=== PATIENT | female | born 1995 | race Caucasian/White ===

== ENCOUNTER 2021-01-27 11:13 | Outpatient (CLI) | payer SELFPAY ==
[~2021-01-27] VITALS: Ht 162.6 cm; Wt 99.3 kg
[2021-01-27 12:10] LABS: APPEARANCE, URINE CLOUDY (CLEAR); BACTERIA, URINE AUTO 1+ (NEGATIVE); BILIRUBIN, URINE AUTO NEGATIVE (NEGATIVE); BLOOD, URINE BLOOD 2+ (NEGATIVE); COLOR, URINE YELLOW (YELLOW); GLUCOSE, URINE (UA) AUTO NEGATIVE (NEGATIVE); KETONE, URINE AUTO NEGATIVE (NEGATIVE); LEUKOCYTE ESTERASE, URINE AUTO 3+ (NEGATIVE); MUCUS, URINE SMALL (NEGATIVE); NITRITE, URINE AUTO NEGATIVE (NEGATIVE); PROTEIN, URINE AUTO 1+ mg/dL (NEGATIVE); RBC, URINE AUTO 102 /HPF (0-3); SPECIFIC GRAVITY URINE AUTO 1.028 (1.002-1.035); SQUAMOUS EPITHELIAL CELL UR AU 8 /HPF (0-6); WBC, URINE AUTO TNTC /HPF (0-3)
--- NOTE | 2021-01-27 12:11 | IPNPDOC ---
Obstetrical Progress Note Date of Service Jan 27, 2021 Subjective Ms. Betancourt is a 25yo at 23+4 presenting for urinary frequency of small void urine, suprapubic discomfort, and abdominal cramps. She denied vb, lof, decreased fm, regular painful contractions. she denied n/v/d, cp, sob, reyes, visual changes, f/c, discharge. Tocometer Contractions: No Sterile Vaginal Examination Dilation: None Station: -3 Cervical Consistency: Firm Cervical Position: Posterior Postion/Presentation: Cephalic presentation (by US) Assessment and Plan Status: Reassuring Additional Comments Ms. Betancourt is a 25yo at 23+4 presenting for urinary frequency of small void urine, suprapubic discomfort, and abdominal cramps. VS normal. Doptones present. No contractions on toco. Cervix C/T/H. CL 4cm. +FM cephalic. Visually appropriate fluid. - Macrobid given for UTI - UA/UCx sent, will call if not susceptible - routine OB return precautions given - patient to follow up at next [facility] and get repeat UCx in 2wk MARYANN BONNER DO Jan 27, 2021 12:11
[2021-01-27] MEDS ORDERED: CITA10TA5 PO (12:14)
[2021-01-27] MEDS ORDERED: PRENTAB9 PO (12:14)
[2021-01-27] MEDS ORDERED: ASPI81CH33 PO (12:14)
== END 2021-01-27 12:09 | disposition home or self-care (01) ==
LOC: M LDO 11:13
PROVIDERS: ATTEND Obstetrics & Gynecology
DX: O23.42 Unspecified infection of urinary tract in pregnancy, second trimester (principal); Z3A.23 23 weeks gestation of pregnancy
CPT/HCPCS: 76815; 81001; 87088; 87186; G0378; G0463

== ENCOUNTER 2021-04-18 04:23 | Outpatient (CLI) | payer OTHER ==
[~2021-04-18] VITALS: Ht 162.6 cm; Wt 101.9 kg
[~2021-04-18 04:23] MED LIST: ASPI81CH33 PO; CITA10TA5 PO; PRENTAB9 PO
[2021-04-18 04:47] VITALS: BP 133/74
--- NOTE | 2021-04-18 06:50 | IPNPDOC ---
Text Note Date of Service The patient was seen on 04/18/21. NOTE 25 yo at 35+1 weeks gestation presented with chest pressure and low back discomfort. Chest discomfort resolved after her presentation to L&D. Denies vaginal bleeding or leakage of fluid. Report regular movement. Vitals - VSS, afebrile, normotensive, non tachycardic General - Sitting up in bed, AAOX3, pleasant and conversant, NAD Lungs - CTAB bilaterally Low back - Mild tenderness to palpation at lumbosacral junction. Cervix - Cl/thick/high per RN exam FHR tracing - Cat I wit moderate variability, +accels, no decels. Rare ctx on toco. UA - Pending Chest discomfort resolved upon presentation to L&D. Lungs clear. Vitals normal. Reassuring status. Scripts written for Flexeril and Pepcid at [facility]. patient discharged with return precautions. All questions answered. 30 minutes Mansoor VS,Junior, I+O VS, Junior, I+O Vital Signs Date Time Temp Pulse Resp B/P (MAP) Pulse Ox O2 Delivery O2 Flow Rate FiO2 04/18/21 04:47 97.6 90 18 133/74 (93) JAVIER BRICE DO Apr 18, 2021 06:50
[2021-04-18 06:57] LABS: APPEARANCE, URINE CLOUDY (CLEAR); BACTERIA, URINE AUTO NEGATIVE (NEGATIVE); BILIRUBIN, URINE AUTO NEGATIVE (NEGATIVE); BLOOD, URINE BLOOD NEGATIVE (NEGATIVE); CALCIUM OXALATE CRYSTALS SMALL; COLOR, URINE AMBER (YELLOW); GLUCOSE, URINE (UA) AUTO NEGATIVE (NEGATIVE); KETONE, URINE AUTO NEGATIVE (NEGATIVE); LEUKOCYTE ESTERASE, URINE AUTO 3+ (NEGATIVE); MUCUS, URINE SMALL (NEGATIVE); NITRITE, URINE AUTO NEGATIVE (NEGATIVE); PROTEIN, URINE AUTO 1+ mg/dL (NEGATIVE); RBC, URINE AUTO 4 /HPF (0-3); SPECIFIC GRAVITY URINE AUTO 1.025 (1.002-1.035); SQUAMOUS EPITHELIAL CELL UR AU 78 /HPF (0-6); WBC, URINE AUTO 60 /HPF (0-3)
== END 2021-04-18 06:50 | disposition home or self-care (01) ==
LOC: M LDO 04:23
PROVIDERS: ATTEND Obstetrics & Gynecology
DX: O26.893 Other specified pregnancy related conditions, third trimester (principal); R07.89 Other chest pain; M54.5 Low back pain; Z3A.35 35 weeks gestation of pregnancy
CPT/HCPCS: 59025; 81001; 87088; G0378; G0463

== ENCOUNTER 2021-05-05 04:23 | Inpatient (IN) | payer OTHER ==
[~2021-05-05] VITALS: Ht 162.6 cm; Wt 101.9 kg
[2021-05-05] VITALS (13 sets, daily range): BP systolic 123–145; BP diastolic 58–82
[~2021-05-05 04:23] MED LIST changes: +FAMO20TA PO
[2021-05-05] MEDS ORDERED: HOME MED LIST COMPLETE! XX SCH (05:25)
[2021-05-05] MEDS ORDERED: LACTATED RINGER'S 1000 ML IV STA (05:28)
[2021-05-05] MEDS ORDERED: OXYTOCIN DRIP 30 UNITS in IV 1 EA IV PRN (05:30)
[2021-05-05] MEDS ORDERED: TRANEXAMIC ACID INJection 1,000 MG in NS 100 ML IV PRN (05:30)
[2021-05-05] MEDS ORDERED: CARBOPROST TROMETHAMINE 250 MCG/ML AMP IM PRN (05:30)
[2021-05-05] MEDS ORDERED: BICITRA 30ML SOLN UDC PO ONE (06:00)
[2021-05-05] MEDS ORDERED: ACETAMINOPHEN *IV* 1,000 MG in IV 1 EA IV ONE (06:00)
[2021-05-05] MEDS ORDERED: LR 500 ML IV ONE (06:00)
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
[2021-05-05] MEDS ORDERED: ceFAZolin SOD 2 GM in IV 1 EA IV ONE (06:05)
[2021-05-05] MEDS ORDERED: AZITHROMYCIN INJ 500 MG, VIAL MATE ADAPTER 1 EACH in NS 250 ML IV ONE (06:05)
[2021-05-05] MEDS ORDERED: BUPIVACAINE HCL 0.25% 10ML VIAL SC SCH (06:05)
[2021-05-05] MEDS: ceFAZolin SOD 1 GM in D5W MINI-BAG PLUS 50 ML IV SCH ×2 (06:15→08:40)
[2021-05-05] MEDS ORDERED: OXYTOCIN INJ 10 UNITS/ML VIAL (J2590) As Ordered ONE (06:40)
[2021-05-05] MEDS ORDERED: MORPHINE PRES-FREE INJ 10 MG/10 ML VIAL (J2274) As Ordered ONE (06:40)
[2021-05-05 06:51] LABS: HEMATOCRIT 34.9 % (36.0-47.0); HEMOGLOBIN 11.9 g/dl (12.0-15.5); MEAN CORPUSCULAR HEMOGLOBIN 31.5 pg (27.0-33.0); MEAN CORPUSCULAR HGB CONC 34.1 g/dl (32.0-36.5); MEAN CORPUSCULAR VOLUME 92.3 fl (80.0-96.0); PLATELET COUNT, AUTOMATED 168 10^3/uL (150-450); RED BLOOD COUNT 3.78 10^6/uL (4.00-5.40)
[2021-05-05 07:17] LABS: ALT/SGPT 23 U/L (12-78); BILIRUBIN,TOTAL 0.3 MG/DL (0.2-1.0); CREATININE FOR GFR 0.61 MG/DL (0.55-1.30); GLOMERULAR FILTRATION RATE > 60.0 (>60); LDH LACTATE DEHYDROGENASE 210 U/L (84-246); URIC ACID 4.9 MG/DL (2.6-6.0)
[2021-05-05] MEDS: LR 1,000 ML IV SCH ×3 (07:52→22:44)
[2021-05-05] MEDS ORDERED: dexameTHASONE 4 MG/ML 1ML VIAL (J1100 PER 1MG) As Ordered ONE (07:58)
[2021-05-05] MEDS ORDERED: KETOROLAC 60MG 2ML VIAL As Ordered ONE (07:58)
[2021-05-05] MEDS ORDERED: ONDANSETRON 4MG/2ML VIAL As Ordered ONE (07:58)
[2021-05-05] MEDS ORDERED: LIDOCAINE 2% W/EPINEPHRINE 20ML VIAL **PRES FREE As Ordered ONE (08:28)
[2021-05-05] MEDS ORDERED: SODIUM BICARBONATE 8.4% INJ 50MEQ 50 ML VIAL As Ordered ONE (08:28)
--- NOTE | 2021-05-05 08:32 | ROOPDOC ---
[facility] Report Of Operation Report of Operation DATE OF PROCEDURE: 05/05/21 PREPROCEDURE DIAGNOSES: history of shoulder dystocia, pre-labor rupture of membranes POSTPROCEDURE DIAGNOSES: delivered PROCEDURE PERFORMED: primary delivery SURGEON: Maryann Bonner DO WINDOWS DESKTOP ENGINEER: Usama Mehta MD ANESTHESIA: epidural ESTIMATED BLOOD LOSS: Approximately 600 mL. COMPLICATIONS: none REMARKS: none FINDINGS: normal appearing uterus, ovaries, and fallopian tubes. Baby delivered via horizontal low transverse incision cephalic. 8/9, 3310g. Uterus closed in 2 layers. IVF 1500cc, EBL 600cc, urine 125cc. START 0848. BABY 0855. STOP 0929. SPECIMENS REMOVED: placenta PROCEDURE NOTE: The risks, benefits, and alternatives of the procedure were discussed and written consent was obtained. The patient was taken to the OR where an epidural was placed. She was then positioned supine with a left tilt with her arms out. doptones were obtained. 2g of ancef and 500mg azithro was administered for antibiotic prophylaxis and bicitra for GI prophylaxis. SCDs were placed for DVT prophylaxis. A bernard was placed in the bladder. The abdomen was prepped and draped in a sterile fashion. The anesthesia was tested to be adequate. A final time out was performed. A pfannensteil incision was made with a scalpel and carried to the fascia. The fascia was scored and extended in a curvilinear fashion bluntly. The superior edge was elevated with clair clamps and the muscles dissected from the fascia with blunt dissection and a scalpel. The procedure was repeated on the inferior edge. The muscles were and the peritoneum entered bluntly. The lower uterine segment was identified and a bladder flap was made with the metzambum scissors. The bladder blade was then placed. A transverse hysterotomy was made in the lower uterine segment and extended bluntly. The head was elevated to the level of the hysterotomy and with the aid of abdominal pressure the baby was delivered atraumatically. The baby had spontaneous movement, cry, and good tone. Warm dry stimulation was performed. The cord was then clamped and cut and the baby given to the pediatric team. Cord blood was obtained. The placenta was delivered via maisha downward traction and was confirmed to be in-tact. The uterus was exteriorized and with a moist lap cleaned of debris. The hysterotomy was closed in a running locking fashion with 0-monocryl. A horizontal imbricating layer was also performed with 0-monocryl. The incision was hemostatic on completion. The posterior cul-de-sac was cleaned of clots with a moist lap and pool suction. The hysterotomy was re-inspected to be hemostatic and the uterus was replaced. The gutters were cleansed with a moist lap and the hysterotomy remained hemostatic. The abdominal peritoneum was closed with 2-0 vicryl in a running fashion. The muscles were inspected to be hemostatic. The fascia was closed with 0-vicryl in a running fashion and palpated to have no defects. The incision was irrigated and 0.25% marcaine 10cc injected at the level of the fascia. The sucutaneous layer was hemostatic with the aid of bovie cautery. 2-0 vicryl was used to close the subcutaneous tissue in a running fashion. The skin was closed with 3-0 monocryl and secured with dermabond. A uterine sweep was performed and bleeding was scant. The fundus was firm. The sponge, lap, and needle counts were correct x2 and there were no complications. The patient was transferred to recovery in stable condition. MARYANN BONNER DO May 05, 2021 08:32
[2021-05-05] MEDS ORDERED: METOCLOPRAMIDE INJ 10MG/2ML VIAL (J2765 PER 1) IV PRN ×2 (09:00→10:30)
[2021-05-05] MEDS ORDERED: diphenhydrAMINE 50MG/ML VIAL (J1200) IV PRN (09:00)
[2021-05-05] MEDS ORDERED: ONDANSETRON 4MG/2ML VIAL IV PRN ×2 (09:00→10:30)
[2021-05-05] MEDS ORDERED: NALOXONE INJ 0.4MG/1ML VIAL (J2310 PER 1MG) IV PRN ×2 (09:00)
[2021-05-05] MEDS ORDERED: NALBUPHINE HCL 10 MG/ML AMP (J2300) IV PRN (09:00)
[2021-05-05] MEDS ORDERED: METOCLOPRAMIDE INJ 10MG/2ML VIAL (J2765 PER 1) As Ordered ONE (09:06)
[2021-05-05] MEDS ORDERED: MIDAZOLAM INJ 2MG/2ML VIAL (J2250 PER 1MG) As Ordered ONE (09:07)
[2021-05-05] MEDS ORDERED: ACETAMINOPHEN 1000MG 100ML IV BTL (OFIRMEV) (J0131 PER 10MG) As Ordered ONE (09:18)
[2021-05-05] MEDS ORDERED: SIMETHICONE 80MG CHEW TAB PO PRN (09:45)
[2021-05-05] MEDS ORDERED: oxyCODONE 5MG TAB PO PRN ×2 (09:45)
[2021-05-05] MEDS ORDERED: ACETAMINOPHEN TAB 650MG DOSE (2X325MG) PO PRN (09:45)
[2021-05-05] MEDS ORDERED: DOCUSATE SODIUM 100MG CAPSULE PO PRN (09:45)
[2021-05-05] MEDS ORDERED: PERCOCET 5MG/325MG TAB PO PRN (10:30)
[2021-05-05] MEDS ORDERED: LR 1,000 ML IV SCH (10:30)
[2021-05-05] MEDS ORDERED: fentaNYL 100 MCG/2 ML INJECTION (J3010) IV PRN (10:30)
[2021-05-05] MEDS ORDERED: OXYTOCIN 30 UNITS IN 0.9% NaCl 500ML IV BAG (J2590) As Ordered ONE (10:34)
[2021-05-06 02:00] VITALS: BP 130/71
--- NOTE | 2021-05-06 05:28 | IPNPDOC ---
Progress Note Date of Service: May 06, 2021 Day#: 1 Progress Note 25yo [id number] PPD1 s/p PLTCD for history of shoulder dystocia 8/9, 3310g, IVF 1500cc, EBL 600cc, urine 125cc. She has been ambulating, voiding spontaneously without issue and tolerating regular diet. Breast feeding without issue. Reports lochia is less than a normal period. Patient is ambulating well. Reports some cramping with . Denies any pain. Voiding and passing flatus without difficulty. APC 1. CHTN- not on medications. Baseline labs normal. 2. 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 Obesity- early 1hr GTT normal, on ASA daily 4. Hx Depression/PTSD- sees , on celexa 5. Ashtma 6. Hx shoulder dystocia with 9#2 oz last 7. Varicella Non-Immune OBJECTIVE: VITAL SIGNS: Within normal limits, afebrile. Alert and oriented times three. No increased wob. Non-tachy. Abdomen: Fundus firm at U-2. Soft, NTTP. Pfannenstiel incision is clean dry and well approximated with dermabond. [Minimal] lochia per pt. ASSESSMENT: 25yo [id number] PPD1 s/p PLTCD for history of shoulder dystocia 8/9, 3310g, IVF 1500cc, EBL 600cc, urine 125cc. Vitals within normal limits, afebrile, hemodynamically stable with no evidence of infection. PLAN: 1. Discharge to home likely tomorrow. 2. Tylenol and Motrin for pain. 3. Encourage breast feeding and ambulation. 4. Mini pill was previously given for contraception. 5. Routine PP visit in 2 and 6 weeks in clinic. 6. Discussed return precautions at length and activity limitations (lifting restrictions, pelvic rest). VS, I&O, 24H, Junior Vital Signs/I&O Vital Signs Date Time Temp Pulse Resp B/P (MAP) Pulse Ox O2 Delivery O2 Flow Rate FiO2 05/06/21 02:00 98.1 70 18 130/71 (90) 97 05/05/21 18:09 Room Air I&O- Last 24 Hours up to 6 AM 05/06/21 06:00 Intake Total 2630 ml Output Total 1680 ml Balance 950 ml Laboratory Data 24H LABS Laboratory Tests 2 05/05/21 05:34: Serology Scanned Report Hepatitis B Testing 05/05/21 06:30: Nucleated Red Blood Cells % (auto) 0.0, Glomerular Filtration Rate > 60.0, Uric Acid 4.9, Total Bilirubin 0.3, Aspartate Amino Transf (AST/SGOT) 22, Alanine Aminotransferase (ALT/SGPT) 23, Lactate Dehydrogenase 210 CBC/BMP Laboratory Tests 05/05/21 06:30 MARYANN BONNER DO May 06, 2021 05:27
[2021-05-06 06:00] VITALS: BP 133/72
[2021-05-06 06:49] LABS: HEMATOCRIT 31.9 % (36.0-47.0); HEMOGLOBIN 10.6 g/dl (12.0-15.5); MEAN CORPUSCULAR HEMOGLOBIN 31.4 pg (27.0-33.0); MEAN CORPUSCULAR HGB CONC 33.2 g/dl (32.0-36.5); MEAN CORPUSCULAR VOLUME 94.4 fl (80.0-96.0); PLATELET COUNT, AUTOMATED 142 10^3/uL (150-450); RED BLOOD COUNT 3.38 10^6/uL (4.00-5.40); WHITE BLOOD COUNT 10.8 10^3/uL (4.0-10.0)
[2021-05-06] MEDS: PRENATAL VITAMINS CHEWABLE TABLET PO SCH (07:39)
[2021-05-06 10:00] VITALS: BP 123/68
[2021-05-06] MEDS: IBUPROFEN 800 MG TAB PO SCH ×2 (11:37→20:17)
[2021-05-06 13:57] VITALS: BP 123/66
[2021-05-06 18:00] VITALS: BP 112/65
[2021-05-06 22:00] VITALS: BP 117/67
[2021-05-07 02:00] VITALS: BP 119/70
[2021-05-07] MEDS: IBUPROFEN 800 MG TAB PO SCH (03:45)
[2021-05-07 06:00] VITALS: BP 103/62
--- NOTE | 2021-05-07 07:20 | OBDS ---
[facility] Obstetrical Discharge Sum. Obstetrical Discharge Summary Date: May 07, 2021 VDRL: ABO Blood Group (Apos) Rh: Positive Rubella: Immune Infant Sex: Female Anesthesia: Local Anesthesia A/P, Post Course List any complications Admission diagnosis: 1. CHTN- not on medications. Baseline labs normal. 2. 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 Obesity- early 1hr GTT normal, on ASA daily 4. Hx Depression/PTSD- sees , on celexa 5. Ashtma 6. Hx shoulder dystocia with 9#2 oz last 7. Varicella Non-Immune Discharge diagnosis: SAME ABOVE Condition at Discharge: STABLE Discharge Instructions: GIVEN PER RN Activity: PELVIC REST FOR 6 WEEKS Diet: REGULAR Medications: AT [place] Follow-up: 2WEEK FOR INCISION CHECK AND 6 WEEKS FOR ROUTINE PP Other: 25yo [id number] PPD2 s/p PLTCD for history of shoulder dystocia 8/9, 3310g, IVF 1500cc, EBL 600cc, urine 125cc. She has been ambulating, voiding spontaneously without issue and tolerating regular diet. Breast feeding without issue. Reports lochia is less than a normal period. Patient is ambulating well. Reports some cramping with . Denies any pain. Voiding and passing flatus without difficulty. OBJECTIVE: VITAL SIGNS: Within normal limits, afebrile. Alert and oriented times three. No increased wob. Non-tachy. Abdomen: Fundus firm at U-2. Soft, NTTP. Pfannenstiel incision is clean dry and well approximated with dermabond. JUANCHO COYNE MD May 07, 2021 06:31
[2021-05-07] MEDS ORDERED: ACET1TAB55 PO (07:24)
[2021-05-07] MEDS ORDERED: IBUP80TA PO (07:24)
[2021-05-07] MEDS: PRENATAL VITAMINS CHEWABLE TABLET PO SCH (08:14)
== END 2021-05-07 11:50 | disposition home or self-care (01) | DRG 773 ==
LOC: M LDO 04:23 → M LDI 05:25 → M OBS 11:50
PROVIDERS: ADMIT Advanced Practice Midwife; ATTEND Advanced Practice Midwife
PROC: 10D00Z1 Extraction of Products of Conception, Low, Open Approach (ICD-10-PCS; principal; 2021-05-05 08:00)
DX: O10.92 Unspecified pre-existing hypertension complicating childbirth (principal); Z37.0 Single live birth; Z3A.37 37 weeks gestation of pregnancy; E66.9 Obesity, unspecified; O99.214 Obesity complicating childbirth; F32.9 Major depressive disorder, single episode, unspecified; F43.10 Post-traumatic stress disorder, unspecified; O99.344 Other mental disorders complicating childbirth; Z14.1 Cystic fibrosis carrier

== ENCOUNTER → 2021-09-02 | Outpatient (REF) ==
[~2021-09-02] MED LIST changes: +ACET1TAB55 PO; -CITA10TA5 PO; +CITA10TA7 PO; +IBUP80TA PO
== END ==
LOC: M LABSMTC 13:00
PROVIDERS: ATTEND Pediatrics
DX: Z20.828 Contact with and (suspected) exposure to other viral communicable diseases (principal)

== ENCOUNTER → 2021-09-09 | Outpatient (REF) | LOC: M LABSMTC 09:58 | PROVIDERS: ATTEND Family Medicine | DX: Z20.828 Contact with and (suspected) exposure to other viral communicable diseases (principal) ==

== ENCOUNTER → 2022-04-24 | Outpatient (CLI) | payer OTHER | LOC: M PAIN 13:00 | PROVIDERS: ATTEND Nurse Practitioner Family | DX: M54.40 Lumbago with sciatica, unspecified side (principal); G89.29 Other chronic pain; Z86.59 Personal history of other mental and behavioral disorders; E66.01 Morbid (severe) obesity due to excess calories; Z68.43 Body mass index [BMI] 50.0-59.9, adult; Z79.899 Other long term (current) drug therapy ==

== ENCOUNTER → 2022-09-09 | Outpatient (CLI) | payer OTHER | LOC: M PAIN 09:00 | PROVIDERS: ATTEND Nurse Practitioner Family | DX: M54.40 Lumbago with sciatica, unspecified side (principal); G89.29 Other chronic pain; Z86.59 Personal history of other mental and behavioral disorders; E66.01 Morbid (severe) obesity due to excess calories; Z68.44 Body mass index [BMI] 60.0-69.9, adult; Z79.899 Other long term (current) drug therapy ==